=== PATIENT | male | born 1985 | race African-American/Black ===

== ENCOUNTER 2016-09-12 11:41 | Emergency (ER) | payer MEDICAID | END 2016-09-12 13:30 | disposition home or self-care (01) | LOC: D.ER 11:41 | DX: N49.2 Inflammatory disorders of scrotum (principal); D57.1 Sickle-cell disease without crisis ==

== ENCOUNTER 2017-01-11 21:19 | Emergency (ER) | payer MEDICAID ==
[2017-01-11 21:52] LABS: BASOPHILS 0.2 % (0-2); HEMATOCRIT 43.9 % (42.0-54.0); HEMOGLOBIN 15.2 g/dL (13.5-17.5); IMMATURE GRANULOCYTES 0.2 % (0-5); LYMPHOCYTES 28.7 % (15-50); MCH 30.4 pg (26.0-34.0); MCHC 34.6 g/dL (31.0-37.0); MCV 87.8 fL (80.0-100.0); MEAN PLATELET VOLUME 9.6 fL (7.4-10.4); NEUTROPHILS 53.9 % (40-80); PLATELET COUNT 165 10x3/uL (130-400); RDW 13.5 % (11.5-14.5); WBC 4.3 10x3/uL (4.8-10.8)
[2017-01-11 22:06] LABS: ALKALINE PHOSPHATASE 67 U/L (46-116); ALT (SGPT) 19 U/L (10-68); CALC OSMOLALITY 280 mosm/kg (275-300); CARBON DIOXIDE 28.3 mmol/L (21.0-32.0); CHLORIDE - SERUM 105 mmol/L (98-107); CREATININE - SERUM 1.1 mg/dL (0.6-1.3); GLUCOSE 95 mg/dL (74-106); POTASSIUM - SERUM 3.9 mmol/L (3.5-5.1); PROTEIN - SERUM 7.2 g/dL (6.4-8.2); SODIUM 141 mmol/L (136-145); UREA NITROGEN 13 mg/dL (7-18); eGFR NON AFRICAN AMERICAN 82 mL/min (90-120)
== END 2017-01-11 22:59 | disposition home or self-care (01) ==
LOC: D.ER 21:19
PROVIDERS: Emergency Medicine
DX: K04.7 Periapical abscess without sinus (principal); K08.89 Other specified disorders of teeth and supporting structures; R50.9 Fever, unspecified; J02.9 Acute pharyngitis, unspecified; R13.10 Dysphagia, unspecified; F17.200 Nicotine dependence, unspecified, uncomplicated

== ENCOUNTER 2018-02-15 17:11 | Observation (INO) | payer SELFPAY ==
[~2018-02-15] VITALS: Ht 182.9 cm; Wt 77.3 kg
[2018-02-15 17:41] LABS: BASOPHILS 0.1 % (0-2); EOSINOPHILS 1.4 % (0-7); HEMATOCRIT 45.9 % (42.0-54.0); HEMOGLOBIN 16.3 g/dL (13.5-17.5); IMMATURE GRANULOCYTES 0.3 % (0-5); LYMPHOCYTES 15.1 % (15-50); MCH 30.6 pg (26.0-34.0); MCHC 35.5 g/dL (31.0-37.0); MCV 86.3 fL (80.0-100.0); MEAN PLATELET VOLUME 9.2 fL (7.4-10.4); NEUTROPHILS 77.1 % (40-80); PLATELET COUNT 185 10x3/uL (130-400); RBC 5.32 10x6/uL (4.20-6.10); RDW 13.5 % (11.5-14.5); WBC 7.6 10x3/uL (4.8-10.8)
[2018-02-15 17:54] LABS: ALBUMIN 4.4 g/dL (3.4-5.0); ANION GAP 11.4 mmol/L (8-16); BILIRUBIN - TOTAL 0.55 mg/dL (0.2-1.3); CALCIUM 9.5 mg/dL (8.5-10.1); CARBON DIOXIDE 30.3 mmol/L (21.0-32.0); CREATININE - SERUM 1.2 mg/dL (0.6-1.3); POTASSIUM - SERUM 3.7 mmol/L (3.5-5.1); PROTEIN - SERUM 7.7 g/dL (6.4-8.2)
[2018-02-15 20:00] VITALS: BP 132/78
[2018-02-15 21:37] VITALS: BP 140/77
[2018-02-15 22:54] LABS: APPEARANCE CLEAR (CLEAR); BILIRUBIN NEGATIVE (NEGATIVE); COLOR YELLOW (YELLOW); GLUCOSE NEGATIVE (NEGATIVE); KETONE NEGATIVE (NEGATIVE); NITRITE NEGATIVE (NEGATIVE); PROTEIN NEGATIVE (NEGATIVE); UROBILINOGEN NORMAL (NORMAL)
[2018-02-15 22:55] LABS: BACTERIA FEW /hpf (NONE SEEN); RED CELLS - URINE OCC /hpf (0-5); WHITE CELLS - URINE 0-5 /hpf (0-5)
[2018-02-16 00:33] VITALS: BP 120/62; BMI 23.1
[2018-02-16 08:28] VITALS: BP 101/73
[2018-02-16 10:45] LABS: BASOPHILS 0 % (0-2); EOSINOPHILS 1.9 % (0-7); HEMATOCRIT 39.4 % (42.0-54.0); HEMOGLOBIN 13.8 g/dL (13.5-17.5); IMMATURE GRANULOCYTES 0.2 % (0-5); LYMPHOCYTES 18.7 % (15-50); MCH 30.1 pg (26.0-34.0); MCV 85.8 fL (80.0-100.0); MEAN PLATELET VOLUME 9.7 fL (7.4-10.4); MONOCYTES 13.3 % (2-11); NEUTROPHILS 65.9 % (40-80); PLATELET COUNT 182 10x3/uL (130-400); RBC 4.59 10x6/uL (4.20-6.10); RDW 13.4 % (11.5-14.5)
[2018-02-16 10:50] LABS: WBC 4.3 10x3/uL (4.8-10.8)
[2018-02-16 11:07] LABS: ALKALINE PHOSPHATASE 42 U/L (46-116); ALT (SGPT) 19 U/L (10-68); BILIRUBIN - TOTAL 0.56 mg/dL (0.2-1.3); CALC OSMOLALITY 275 mosm/kg (275-300); CALCIUM 7.9 mg/dL (8.5-10.1); CARBON DIOXIDE 26.1 mmol/L (21.0-32.0); CHLORIDE - SERUM 106 mmol/L (98-107); GLUCOSE 106 mg/dL (74-106); POTASSIUM - SERUM 3.5 mmol/L (3.5-5.1); PROTEIN - SERUM 5.8 g/dL (6.4-8.2); SODIUM 138 mmol/L (136-145); UREA NITROGEN 13 mg/dL (7-18); eGFR NON AFRICAN AMERICAN > 90 mL/min (90-120)
[2018-02-16 11:30] VITALS: BP 128/75
[2018-02-16 15:30] VITALS: BP 115/90
[2018-02-16 19:56] VITALS: Ht 182.9 cm; Wt 77.3 kg
[2018-02-16 20:00] VITALS: BP 109/61
[2018-02-17] VITALS: BP 128/71
[2018-02-17 04:00] VITALS: BP 123/75
[2018-02-17 07:33] LABS: BASOPHILS 0.2 % (0-2); EOSINOPHILS 3.9 % (0-7); HEMOGLOBIN 15.2 g/dL (13.5-17.5); IMMATURE GRANULOCYTES 0.2 % (0-5); LYMPHOCYTES 27.9 % (15-50); MCH 30.3 pg (26.0-34.0); MCHC 35.3 g/dL (31.0-37.0); MCV 85.8 fL (80.0-100.0); MEAN PLATELET VOLUME 10.6 fL (7.4-10.4); MONOCYTES 11.4 % (2-11); NEUTROPHILS 56.4 % (40-80); PLATELET COUNT 174 10x3/uL (130-400); RBC 5.01 10x6/uL (4.20-6.10); RDW 13.4 % (11.5-14.5); WBC 4.8 10x3/uL (4.8-10.8)
[2018-02-17 07:57] LABS: ALBUMIN 3.4 g/dL (3.4-5.0); ALKALINE PHOSPHATASE 45 U/L (46-116); BILIRUBIN - TOTAL 0.43 mg/dL (0.2-1.3); CALC OSMOLALITY 275 mosm/kg (275-300); CALCIUM 8.4 mg/dL (8.5-10.1); CARBON DIOXIDE 25.5 mmol/L (21.0-32.0); CHLORIDE - SERUM 106 mmol/L (98-107); CREATININE - SERUM 0.9 mg/dL (0.6-1.3); GLUCOSE 85 mg/dL (74-106); PROTEIN - SERUM 6.2 g/dL (6.4-8.2); SODIUM 139 mmol/L (136-145); UREA NITROGEN 10 mg/dL (7-18); eGFR NON AFRICAN AMERICAN > 90 mL/min (90-120)
[2018-02-17 07:58] LABS: ALT (SGPT) 24 U/L (10-68); POTASSIUM - SERUM 4.1 mmol/L (3.5-5.1)
[2018-02-17 08:18] VITALS: BP 123/75
[2018-02-17] MEDS ORDERED: LEVAQUIN250 MG PO (11:30)
[2018-02-17] MEDS ORDERED: PROTONIX40 MG PO (11:31)
[2018-02-17] MEDS ORDERED: FLAGYL500 MG PO (11:31)
== END 2018-02-17 13:27 | disposition home or self-care (01) ==
LOC: D.ER 17:11 → OBSVTIME 22:53 → D.MS 22:53
PROVIDERS: Family Medicine
DX: K29.00 Acute gastritis without bleeding (principal); K52.9 Noninfective gastroenteritis and colitis, unspecified; E86.0 Dehydration; R50.9 Fever, unspecified; Z87.891 Personal history of nicotine dependence